=== PATIENT | male | born 1975 | race African-American/Black ===

== ENCOUNTER 2023-08-22 22:28 | Emergency (ER) | payer OTHER ==
[~2023-08-22] VITALS: Ht 170.2 cm; Wt 72.6 kg
[2023-08-22 23:10] VITALS: BP 131/85; TEMP 98; O2SAT 99
[2023-08-22] MEDS ORDERED: TETRAcaine 5 ML BOTTLE ONE (23:14)
[2023-08-22] MEDS ORDERED: FLUORESCEIN SODIUM OPHTH 1 EA STRIP ONE (23:14)
[2023-08-22] MEDS ORDERED: CIPR2.5D14 LEFTEYE (23:19)
[2023-08-22] MEDS: TETRAcaine 5 ML BOTTLE EACHEYE ONE (23:25)
[2023-08-22] MEDS: FLUORESCEIN SODIUM OPHTH 1 EA STRIP OP ONE (23:25)
== END 2023-08-22 23:27 | disposition home or self-care (01) ==
LOC: ER 22:37
DX: S05.02XA Injury of conjunctiva and corneal abrasion without foreign body, left eye, initial encounter (principal); Z60.2 Problems related to living alone; X58.XXXA Exposure to other specified factors, initial encounter; Y93.89 Activity, other specified; Y92.89 Other specified places as the place of occurrence of the external cause; Y99.8 Other external cause status

== ENCOUNTER 2023-09-15 08:20 | Emergency (ER) | payer OTHER ==
[~2023-09-15] VITALS: Ht 170.2 cm; Wt 72.6 kg
[~2023-09-15 08:20] MED LIST: CIPR2.5D14 LEFTEYE
[2023-09-15 08:36] VITALS: BP 117/85; TEMP 98.6; O2SAT 98
[2023-09-15] MEDS ORDERED: LIDOCAINE HCL/MPF 1% 30 ML VIAL IJ ONE (08:48)
[2023-09-15] MEDS ORDERED: CEFD300C3 PO (09:11)
[2023-09-15] MEDS ORDERED: IBUP-1955 PO (09:11)
[2023-09-15] MEDS ORDERED: SULF1TAB48 PO (09:11)
[2023-09-15] MEDS: LIDOCAINE 1% INJ 50 ML MDV IJ ONE (09:14)
[2023-09-15] MEDS: BACI/NEOM/POLY B OINT PKT 1 UDPKT PACKET TP ONE (09:15)
== END 2023-09-15 09:46 | disposition home or self-care (01) ==
LOC: ER 08:32
DX: L98.491 Non-pressure chronic ulcer of skin of other sites limited to breakdown of skin (principal); Z60.2 Problems related to living alone; Z79.899 Other long term (current) drug therapy
CPT/HCPCS: 64450; 99284; A6403; J3490